=== PATIENT | male | born 1945 | race Caucasian/White ===

== ENCOUNTER 2019-08-12 10:19 | Emergency (ER) | payer MEDICARE, OTHER ==
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
[2019-08-12 11:45] LABS: Influenza A Molecular NEGATIVE (Negative); Influenza B Molecular NEGATIVE (Negative)
[2019-08-12 13:15] VITALS: BP 104/57
== END 2019-08-12 13:15 | disposition home or self-care (01) ==
LOC: UCEAST 10:19
DX: M25.511 Pain in right shoulder (principal); M54.2 Cervicalgia; M25.552 Pain in left hip; M25.551 Pain in right hip; M54.5 Low back pain; M25.532 Pain in left wrist; M25.531 Pain in right wrist; M79.642 Pain in left hand; M79.641 Pain in right hand; E11.9 Type 2 diabetes mellitus without complications; I10 Essential (primary) hypertension; K21.9 Gastro-esophageal reflux disease without esophagitis; F41.9 Anxiety disorder, unspecified; F32.9 Major depressive disorder, single episode, unspecified; M85.88 Other specified disorders of bone density and structure, other site; M50.30 Other cervical disc degeneration, unspecified cervical region; M47.812 Spondylosis without myelopathy or radiculopathy, cervical region; Z79.899 Other long term (current) drug therapy
CPT/HCPCS: 71046; 72050; 81003; 99201; G0463